=== PATIENT | male | born 2000 | race Caucasian/White ===

== ENCOUNTER → 2025-04-21 | Outpatient (CLI) | payer OTHER ==
[2025-04-22 02:51] LABS: Creatine Kinase 34 U/L (35-257); Rheumatoid Factor, Qnt <15 IU/mL (0-15)
[2025-04-22 03:37] LABS: B/A1 Ratio 0.56 Ratio (0.35 - 1.00)
[2025-04-22 03:53] LABS: Cyclic Citrull Pep IgG Unit <1.5 U/mL (<=3.9)
[2025-04-22 03:54] LABS: Anti-DNA, DS unit <1.0 IU/mL; DNA Double-Stranded Negative (Negative)
[2025-04-22 09:00] LABS: HLA B27 NEGATIVE
== END | disposition home or self-care (01) ==
LOC: LABWHC1 15:39
PROVIDERS: ATTEND Physical Medicine & Rehabilitation
DX: M79.10 Myalgia, unspecified site (principal); M25.50 Pain in unspecified joint
CPT/HCPCS: 36415; 82172; 82550; 83090; 83520; 85652; 86038; 86140; 86200; 86225; 86431; 86812